=== PATIENT | female | born 1980 | race African-American/Black ===

== ENCOUNTER 2017-06-21 14:57 | Inpatient (IN) | payer OTHER ==
[~2017-06-21] VITALS: Ht 172.7 cm; Wt 101.6 kg
--- NOTE | ~2017-06-21 | H ---
[facility] [place] [address] HISTORY AND PHYSICAL Name: CLINT BURGESS Room #: 307-P ADM IN M.R.#: [id number] Admission: 06/21/17 Attend Phys: Favian Yarbrough MD Discharge: Date of : 78 Report #: [id number] THIS REPORT FOR: //name// CC: STEPHY physician/PCP Favian Yarbrough DICTATED BY: Marisa AHUJA DATE OF SERVICE: 06/21/2017 CHIEF COMPLAINT: MS flare. HISTORY OF PRESENT ILLNESS: The patient is a 37-year-old obese female with a history of diabetes as well as MS. She says she was diagnosed with MS about 3 years ago. She has been on high dose steroids for MS for the last 3 years. She actually says she has been on prednisone since the age of 14 for hives and she has never been off of it. She has been taking 100 mg of prednisone daily. As far as her MS, she has had increased symptoms over the last 6 months. She reports that she has locking in her legs and arms and slight pains. She has pressure behind her eyes and headache. She is very sensitive to light. She also describes 2 recent episodes of vision loss. One episode was 2 days ago and one episode was yesterday in which she had total blackness. She was talking to a friend and was suddenly unable to see her, but her friend said her eyes had remained open the whole time. She says this lasted about 10 minutes. She also says she had increasing weakness and numbness in both legs. This has progressively been getting worse. The weakness and numbness has been affecting both thighs. She is on chronic opiates as well benzos at home. She says the pain medicine including Dilaudid 4 mg p.o. has not been helping her pain in her legs. She has been able to ambulate. As far as her diabetes, she does check her blood sugars regularly, but says that her blood sugars have been running very high in the last few days. She has also noticed increasing urination and increasing thirst. She has been afraid to adjust her insulin too much because "I'm not a doctor." She recently moved here from [place] with her spouse for unclear reasons. She is yet to get established with a PCP, neurologist or electrical research engineer here. PAST MEDICAL HISTORY: MS, insulin-dependent diabetes, hypertension, pancreatitis, hyperlipidemia, depression. PAST SURGICAL HISTORY: Cholecystectomy, Donya-en-Y gastric bypass, Donya-en-Y reverse and stomach reconstruction, multiple ERCPs, lumbar back surgery, left hand repair, right ACL repair, and right buttock abscess I and D. ALLERGIES: VICODIN, ____, BACLOFEN, CONTRAST DYE, HYDROCODONE, IBUPROFEN, CYTOTEC, PERCOCET, LYRICA, COMPAZINE, TRAMADOL. [address] [address] HISTORY AND PHYSICAL Name: CLINT BURGESS Room #: 307-P ADM IN M.R.#: [id number] Admission: 06/21/17 Attend Phys: Favian Yarbrough MD Discharge: Date of : 78 Report #: [id number] HOME MEDICATIONS: Hydroxyzine 50 mg p.o. q.i.d., carvedilol 25 mg p.o. b.i.d., clonidine 0.2 mg p.o. b.i.d., NovoLog insulin 20 units with meals and sliding scale before meals and at bedtime, prednisone 100 mg daily, Norvasc 5 mg daily, Invokana 300 mg daily, temazepam 15 mg at bedtime, Lipitor 40 mg daily, Neurontin 600 mg t.i.d., lorazepam 2 mg at bedtime, Remeron 30 mg at bedtime, Prozac 40 mg daily, Protonix 40 mg daily, Zofran p.r.n., Singulair 10 mg at bedtime and ____ insulin 80 units at bedtime. SOCIAL HISTORY: The patient currently lives with her spouse. They recently moved here from [place] to be closer to a support system within her restorationism. She does have one child who does not live with her. She became very tearful when talking about her son. She is a smoker. She currently smokes 5 cigarettes per day. She has been smoking for 18 months. She denies any alcohol or drug use. She does require a cane or a walker at times for ambulation. FAMILY HISTORY: She does have an aunt who has MS. Her mother is alive with diabetes, prior stroke and heart attack. Her father is . She did not know him or why he . REVIEW OF SYSTEMS: The patient states she had complications after a Donya-en-Y surgery, in which she required long-term TPN for many years and was unable to eat. She then had stomach reconstruction surgery to reverse this. She is now able to eat and drink without difficulty. All other 12-point review of systems was reviewed with the patient, otherwise negative unless stated in the HPI. PHYSICAL EXAMINATION: GENERAL: The patient is an alert, well-manicured, obese female, in no acute distress. VITAL SIGNS: Temperature 36.9, heart rate initially was 126, respirations 16, blood pressure is 138/102, oxygen 100% on room air. HEENT: PERRLA. Sclerae is nonicteric. Oral mucosa is pink and moist. NECK: Supple, no JVD noted. CARDIAC: Normal S1, S2. No murmurs, rubs or gallops. RESPIRATORY: Breath sounds are clear bilaterally. She is diminished in both bases. Breathing is nonlabored. ABDOMEN: Soft and obese, nontender with positive bowel sounds. There are multiple abdominal surgery scars that are well healed. VASCULAR: No edema noted. Pedal pulses are 2+ and no calf tenderness. NEUROLOGIC: She does have slight weakness to left lower extremity, but she is able to raise her left leg up off the bed and bend her knee at a 90-degree angle. She does have slight decreased sensation in both lower extremities. Muscle strength is 5/5 in bilateral upper extremities. SKIN: Intact. No rashes or lesions. She does have multiple piercings of her nose, lip and ears. PSYCHIATRIC: The patient is calm and cooperative, but did become tearful when talking about her son. [address] [address] HISTORY AND PHYSICAL Name: CLINT BURGESS Room #: [address] [place] [address] IN .R.#: [id number] Admission: 06/21/17 Attend Phys: Favian Yarbrough MD Discharge: Date of : 78 Report #: [id number] LABORATORY DATA AND DIAGNOSTICS: Potassium 4.5, BUN 14, creatinine 1.6, glucose 557. Lipase is 119. Urine test was negative. VBGs showed a pH of 7.32, pCO2 of 38.7, and pO2 of 49.2 with a lactate of 4.64. WBC is 8.2, hemoglobin 9.7, and platelets 238. Urine shows 3+ blood, negative nitrite and leukocyte esterase. No wbc's. There was yeast present and 3+ glucose. CT of the abdomen and pelvis showed chronic changes in the lumbar spine. There is a tiny kidney stone without obstruction or ureter stone. There are old bowel surgical changes. There is a small umbilical hernia with small bowel extending into the hernia sac. There is minor pancreatic head calcification and possibly chronic pancreatitis. ASSESSMENT AND PLAN: 1. Possible multiple sclerosis flare. The most concerning is that she had some vision loss. She is already on high dose steroids at this time and we will need to further evaluate for stroke with an MRI. Consult neurology. She needs to establish care with neurology and possibly a multiple sclerosis specialist here in [place] to discuss other treatment options as her high dose steroids are making her blood sugars out of control. 2. Diabetes. This is uncontrolled. She is not in diabetic ketoacidosis. She was given an insulin bolus in the Emergency Room. Resume her home insulin including long-acting insulin and premeal insulin and sliding scale. Check hemoglobin A1c. 3. Systemic inflammatory response syndrome. It is not clear if this is related to infection or uncontrolled sugars. She is not in diabetic ketoacidosis and does not have ketones in her urine. She does have yeast in her urine. We will add fluconazole. Otherwise, no other source of infection was seen. Continue with IV fluids. Follow lactate level after IV fluids. 4. Acute kidney injury. Baseline creatinine is unknown. We will try to rehydrate and repeat labs. 5. Hypertension. Blood pressure is stable. Resume home meds and monitor blood pressure. 6. Chronic narcotics and benzo use. We will need to verify her medications with her pharmacy. Once they are verified, we will continue them, but hold for sedation. 7. Anemia. The patient says this is chronic. No signs of bleeding. 6. Deep venous thrombosis prophylaxis. Place sequential compression devices. We will continue to follow the patient closely throughout the hospitalization and make changes based on clinical status. <ELECTRONICALLY SIGNED> By: Nivia Rees MD 06/23/17 1514 [id number] Nivia Rees MD /sina
--- NOTE | ~2017-06-21 | HC ---
[facility] [place] [address] CONSULTATION Name: CLINT BURGESS Room #: 307-P ADM IN M.R.#: [id number] Admission: 06/21/17 Attend Phys: Favian Yarbrough MD Discharge: Date of : 78 Report #: [id number] THIS REPORT FOR: //name// CC: STEPHY physician/PCP Favian Yarbrough DATE OF SERVICE: 06/23/2017 HISTORY OF PRESENT ILLNESS: The patient is a 37-year-old -[place] female diagnosed with MS approximately 3 years ago, notes that she was in denial regarding it. She was being treated with corticosteroids. She was functioning quite well overall and then she started having worsening problems with ADLs and was using a cane versus walker. She was admitted with an episode of visual loss. MRI is positive for extensive demyelinating changes and she has been diagnosed with an MS exacerbation. Neurology is involved. She is on Solu-Medrol and she is being started on immunomodulators. With the chronic steroid use, endocrinology is felt recommended. We are seeing her in rehabilitation medicine consultation. PAST MEDICAL HISTORY: Also includes diabetes mellitus type 2, hypertension, chronic pancreatitis and exogenous obesity. SOCIAL HISTORY: She lives in an apartment alone. There are 4 steps in and then steps to go up to her washer and dryer or down to her bedroom. It is basically a split level. She is currently living by herself. Her 16-year-old son is with another family member out of town and she has a significant other that is currently in [place] where she is originally from. Premorbid cane versus walker ambulator. REVIEW OF SYSTEMS: Did not offer any current complaints of chest pain, shortness of breath or abdominal discomfort. PHYSICAL EXAMINATION: GENERAL: A 37-year-old overweight -[place] female in no obvious distress. She is alert and pleasant. VITAL SIGNS: Last recorded temperature 97.7, pulse 69, respirations 14 and blood pressure 157/110. NEUROLOGIC: Alert, oriented. HEENT: Appeared to be benign. EOMs, no nystagmus. Facies were symmetric. EXTREMITIES: Functional range of motion of both upper extremities. She has good strength. Coordination really appeared intact as far as donuai-jj-tang. In her lower extremities, there is no focal calf swelling. I would grade her strength at a 4/5. She is somewhat weak of the left leg, that is more of a 4-/5. Functionally, she is [id number] standby assistance and ambulated 150 feet contact guard [place] [address] CONSULTATION Name: CLINT BURGESS Room #: [address] [place] [address] IN M.R.#: [id number] Admission: 06/21/17 Attend Phys: Favian Yarbrough MD Discharge: Date of : 78 Report #: [id number] ASSESSMENT: A 37-year-old -[place] female with the following problem list: 1. Multiple sclerosis exacerbation. 2. Gait and mobility deficits, which are improving. 3. Diabetes mellitus. 4. Hypertension. 5. History of a pancreatitis. PLAN: The patient is doing quite well with basic functional mobility with sit to stand and ambulating 150 feet contact guard with a front-wheeled walker. We will have the therapist work with her on steps. OT to further evaluate. Would anticipate she will likely be able to return directly home as she further medically stabilizes, but we will continue to follow along with you in the meantime. By: 1105 [id number] Ramsey Leung MD /nt
[2017-06-21 14:59] VITALS: BP 138/102
[2017-06-21] MEDS ORDERED: COREG25 MG PO (16:38)
[2017-06-21] MEDS ORDERED: HYDROXYZINE HCL50 MG PO (16:38)
[2017-06-21] MEDS ORDERED: CATAPRES0.2 M1 PO (16:39)
[2017-06-21] MEDS ORDERED: NOVOLOG100 UNIT/1 SUBQ (16:39)
[2017-06-21] MEDS ORDERED: NORVASC5 MG PO (16:40)
[2017-06-21] MEDS ORDERED: INVOKANA300 MG PO (16:40)
[2017-06-21] MEDS ORDERED: PREDNISONE 20 M20 MG PO (16:40)
[2017-06-21] MEDS ORDERED: RESTORIL15 MG PO (16:40)
[2017-06-21] MEDS ORDERED: NEURONTIN 300300 M1 PO (16:41)
[2017-06-21] MEDS ORDERED: ATORVASTATIN CA40 MG PO (16:41)
[2017-06-21] MEDS ORDERED: LORAZEPAM 2MG TA2 M1 PO (16:42)
[2017-06-21] MEDS ORDERED: PROZAC40 MG PO (16:43)
[2017-06-21] MEDS ORDERED: REMERON 30 MG T30 M1 PO (16:43)
[2017-06-21] MEDS ORDERED: SINGULAIR 10 MG10 M1 PO (16:44)
[2017-06-21] MEDS ORDERED: PROTONIX40 M1 PO (16:44)
[2017-06-21] MEDS ORDERED: ONDANSETRON HCL4 M2 PO (16:44)
[2017-06-21] MEDS ORDERED: TOUJEO SOL300 UNIT/1 SQ (16:45)
[2017-06-21 17:06] LABS: URINE BILIRUBIN NEGATIVE (Negative); URINE BLOOD 3+ (Negative); URINE COLOR YELLOW; URINE GLUCOSE-RANDOM* 3+ (Negative); URINE KETONES NEGATIVE (Negative); URINE LEUKOCYTES-REFLEX NEGATIVE (Negative); URINE PROTEIN (DIPSTICK) NEGATIVE (Negative); URINE UROBILINOGEN 0.2 E.U./dl (0.2-1.0)
[2017-06-21 17:16] LABS: CASTS None Seen /LPF (None Seen); CRYSTALS None Seen /LPF (None Seen); SQUAMOUS 4-10 Moderate /LPF (0-3); URINE WBC-REFLEX 0-5 Rare /HPF (0-5); YEAST-REFLEX Present (None Seen)
[2017-06-21 17:27] LABS: HEMATOCRIT 31.8 % (37.0-47.0); HEMOGLOBIN 9.7 gm/dL (12.0-15.0); MCH 24.7 pg (26.0-34.0); MCHC 30.6 g/dL (28.0-37.0); MCV 80.5 fL (80.0-100.0); PLATELET COUNT 238 thou/uL (150-400); RBC 3.95 mil/uL (4.20-5.00); RDW 21.6 % (10.5-14.5); WBC 8.2 thou/uL (4.0-11.0)
[2017-06-21 17:29] LABS: MANUAL DIFF YES
[2017-06-21 17:46] LABS: CALCIUM 9.2 mg/dL (8.5-10.1); CREATININE 1.6 mg/dL (0.6-1.0); POTASSIUM 4.5 mmol/L (3.5-5.1)
[2017-06-21 18:02] LABS: ABSOLUTE NEUTROPHILS 7.8 thou/uL (1.4-8.2); ANISOCYTOSIS 2+; POIKILOCYTOSIS 1+; POLYCHROMASIA OCCASIONAL; TOTAL CELL COUNT 100
[2017-06-21 19:01] LABS: ABG SAMPLE TYPE VENOUS; BE(vivo) -5.7 mmol/L (-2 to +3); HCO3 19.8 mmol/L (22.0-26.0); O2(CT) 10.8 mL/dL (15.0-23.0); O2Hb VENOUS 75.3 (65.0-85.0); PCO2 VENOUS 38.7 mmHg (41.0-51.0); PO2 VENOUS 49.2 mmHg (35.0-45.0); STICK SITE LINE; sO2 VENOUS 82.2 % (65.0-85.0)
[2017-06-21 19:02] LABS: LACTATE 4.64 mmol/L (0.5-2.0)
[2017-06-21 20:54] VITALS: BP 171/100
[2017-06-22 00:17] VITALS: BP 172/111
[2017-06-22 03:55] VITALS: BP 122/82
[2017-06-22 06:28] LABS: CALCIUM 8.6 mg/dL (8.5-10.1); CREATININE 1.1 mg/dL (0.6-1.0); POTASSIUM 3.8 mmol/L (3.5-5.1)
[2017-06-22 08:00] VITALS: BP 142/86
[2017-06-22] MEDS ORDERED: ESKALITH300 MG PO (08:03)
[2017-06-22 10:32] LABS: ABG SAMPLE TYPE ARTERIAL; BE(vivo) -1.9 mmol/L (-2 to +3); HCO3 22.3 mmol/L (22.0-26.0); LACTATE 1.69 mmol/L (0.5-2.0); O2(CT) 13.3 mL/dL (15.0-23.0); O2Hb 94.8 % (92.0-98.0); PCO2 35.6 mmHg (35.0-45.0); PO2 94.3 mmHg (80.0-100.0); pH 7.415 (7.360-7.450); sO2 97.4 % (92.0-98.0); tCO2 23.4 mmol/L (24.0-30.0)
[2017-06-22 10:33] LABS: STICK SITE R.RADIAL
[2017-06-22 11:16] LABS: CALCIUM 8.9 mg/dL (8.5-10.1); CREATININE 1.1 mg/dL (0.6-1.0); POTASSIUM 3.6 mmol/L (3.5-5.1)
[2017-06-22 11:22] LABS: ALBUMIN 3.2 g/dL (3.4-5.0); TOTAL BILIRUBIN 0.7 mg/dL (<0.1-1.0); TOTAL PROTEIN 6.8 g/dL (6.4-8.2)
[2017-06-22 16:00] VITALS: BP 141/92
[2017-06-22 19:23] VITALS: BP 149/98
[2017-06-23 03:47] VITALS: BP 152/98
[2017-06-23 05:08] LABS: GLYCOHEMOGLOBIN (HGB A1C) 8.9 % (4.8-5.6)
[2017-06-23 07:25] VITALS: BP 157/110
[2017-06-23 08:46] LABS: HEMATOCRIT 29.2 % (37.0-47.0); MCHC 30.9 g/dL (28.0-37.0); MCV 80.8 fL (80.0-100.0); RBC 3.61 mil/uL (4.20-5.00); RDW 21.3 % (10.5-14.5); WBC 7.6 thou/uL (4.0-11.0)
[2017-06-23 09:00] LABS: CALCIUM 8.7 mg/dL (8.5-10.1); CREATININE 1.5 mg/dL (0.6-1.0)
[2017-06-23 09:07] LABS: POTASSIUM 5.2 mmol/L (3.5-5.1)
[2017-06-23 13:21] LABS: CHOLESTEROL 150 mg/dL (<200); HDL CHOLESTEROL 65 mg/dL (>40); LDL CHOLESTEROL 68 mg/dL (<100); TC:HDL 2.3 Ratio (Not establshd); TRIGLYCERIDE 88 mg/dL (<150); VLDL 18 mg/dL (<40)
[2017-06-23 13:48] LABS: TSH 0.059 uIU/mL (0.358-3.740)
[2017-06-23 19:40] VITALS: BP 134/83
[2017-06-23 20:07] LABS: FREE T4 0.9 ng/dL (0.82-1.77)
[2017-06-24 01:06] LABS: HEP B SURFACE Ab(ANTI-HBS Non Reactive (())
[2017-06-24 04:25] VITALS: BP 129/79
[2017-06-24 04:43] LABS: HEMATOCRIT 27.8 % (37.0-47.0); HEMOGLOBIN 8.6 gm/dL (12.0-15.0); MCH 24.6 pg (26.0-34.0); MCV 79.4 fL (80.0-100.0); RBC 3.5 mil/uL (4.20-5.00); RDW 21.4 % (10.5-14.5)
[2017-06-24 04:54] LABS: CALCIUM 8.8 mg/dL (8.5-10.1)
[2017-06-24 05:01] LABS: POTASSIUM 4.2 mmol/L (3.5-5.1)
[2017-06-24 05:08] LABS: GLYCOHEMOGLOBIN (HGB A1C) 9.2 % (4.8-5.6)
[2017-06-24 08:27] VITALS: BP 150/99
[2017-06-24 17:39] VITALS: BP 143/94
[2017-06-24 19:34] VITALS: BP 143/88
[2017-06-25 04:03] VITALS: BP 139/86
[2017-06-25 04:05] LABS: HEMATOCRIT 27.3 % (37.0-47.0); HEMOGLOBIN 8.4 gm/dL (12.0-15.0); MCH 24.8 pg (26.0-34.0); MCHC 30.9 g/dL (28.0-37.0); MCV 80.4 fL (80.0-100.0); RBC 3.4 mil/uL (4.20-5.00); RDW 21.6 % (10.5-14.5)
[2017-06-25 04:16] LABS: CALCIUM 8.6 mg/dL (8.5-10.1); CREATININE 1.2 mg/dL (0.6-1.0); POTASSIUM 4.4 mmol/L (3.5-5.1)
[2017-06-25 08:00] VITALS: BP 158/102
[2017-06-25] MEDS ORDERED: KEFLEX500 MG PO (12:05)
[2017-06-25] MEDS ORDERED: ROBAXIN 750 MG750 M1 PO (12:06)
[2017-06-25] MEDS ORDERED: MORPHINE SULFAT15 M3 PO (12:11)
[2017-06-25] MEDS ORDERED: PREDNISONE 10 M10 M1 PO (12:16)
[2017-06-25] MEDS ORDERED: HUMALOG100 UNIT/1 SUBQ (12:17)
[2017-06-26 04:09] LABS: ALPHA TOCOPHEROL 7.6 mg/L (5.3-16.8)
== END 2017-06-25 16:12 | DRG 59 ==
LOC: ER 14:57 → 3N 18:57 → EROBS 18:57 → 3N 21:18
PROVIDERS: Emergency Medicine; Internal Medicine; Nurse Practitioner Acute Care; Psychiatry & Neurology Neurology
DX: G35 Multiple sclerosis (principal); N17.9 Acute kidney failure, unspecified; R65.10 Systemic inflammatory response syndrome (SIRS) of non-infectious origin without acute organ dysfunction; E27.40 Unspecified adrenocortical insufficiency; E87.2 Acidosis; N39.0 Urinary tract infection, site not specified; E87.0 Hyperosmolality and hypernatremia; K86.1 Other chronic pancreatitis; E11.65 Type 2 diabetes mellitus with hyperglycemia; I10 Essential (primary) hypertension; F17.210 Nicotine dependence, cigarettes, uncomplicated; D64.9 Anemia, unspecified; F32.9 Major depressive disorder, single episode, unspecified; E66.01 Morbid (severe) obesity due to excess calories; Z68.34 Body mass index [BMI] 34.0-34.9, adult; Z88.1 Allergy status to other antibiotic agents; Z88.8 Allergy status to other drugs, medicaments and biological substances; Z91.041 Radiographic dye allergy status
CPT/HCPCS: 10094

== ENCOUNTER 2017-07-16 15:16 | Inpatient (IN) | payer OTHER ==
[~2017-07-16] VITALS: Ht 172.7 cm; Wt 99.8 kg
--- NOTE | ~2017-07-16 | EKG ---
[place] [address] [address] [address] ELECTROCARDIOGRAM REPORT Name: CLNIT BURGESS Room #: 423-1 ADM IN M.R.#: [id number] Admission: 07/16/17 Attend Phys: Nivia Rees Discharge: Date of : 78 Report #: [id number] THIS REPORT FOR: //name// [facility] ED Test Date: 2017-07-16 Test Time: 18:02:57 Pat Name: CLINT BURGESS Department: Room: [facility] Gender: F Gasket Former: [id number] : 1980 Requested By: Parvez Espinosa Order Number: [id number] MD: Brock Carter Measurements Intervals [place] Rate: 90 P: 38 FL: 143 QRS: 13 QRSD: 100 T: 150 QT: 387 QTc: 474 Interpretive Statements Sinus rhythm LVH with secondary repolarization abnormality No previous ECG available for comparison Electronically Signed On 07-17-2017 12:41:52 CDT by Brock Carter [email or web address] <ELECTRONICALLY SIGNED> By: Brock Carter MD 07/17/17 1241 1802 1802 Brock Carter MD /GIULIA
[2017-07-16 15:16] VITALS: BP 107/75
[~2017-07-16 15:16] MED LIST: ATORVASTATIN CA40 MG PO; CATAPRES0.2 M1 PO; COREG25 MG PO; ESKALITH300 MG PO; HUMALOG100 UNIT/1 SUBQ; HYDROXYZINE HCL50 MG PO; INVOKANA300 MG PO; KEFLEX500 MG PO; LORAZEPAM 2MG TA2 M1 PO; MORPHINE SULFAT15 M3 PO; NEURONTIN 300300 M1 PO; NORVASC5 MG PO; NOVOLOG100 UNIT/1 SUBQ; ONDANSETRON HCL4 M2 PO; PREDNISONE 10 M10 M1 PO; PREDNISONE 20 M20 MG PO; PROTONIX40 M1 PO; PROZAC40 MG PO; REMERON 30 MG T30 M1 PO; RESTORIL15 MG PO; ROBAXIN 750 MG750 M1 PO; SINGULAIR 10 MG10 M1 PO; TOUJEO SOL300 UNIT/1 SQ
[2017-07-16 17:18] LABS: HEMATOCRIT 32.4 % (37.0-47.0); HEMOGLOBIN 10.1 gm/dL (12.0-15.0); MCH 24.7 pg (26.0-34.0); MCHC 31.3 g/dL (28.0-37.0); MCV 79.1 fL (80.0-100.0); RBC 4.09 mil/uL (4.20-5.00); RDW 20.1 % (10.5-14.5); WBC 5.5 thou/uL (4.0-11.0)
[2017-07-16 17:20] LABS: ABG SAMPLE TYPE VENOUS; BE(vivo) 5.5 mmol/L (-2 to +3); HCO3 30.6 mmol/L (22.0-26.0); O2(CT) 12.7 mL/dL (15.0-23.0); O2Hb VENOUS 82.2 (65.0-85.0); PCO2 VENOUS 47.1 mmHg (41.0-51.0); PO2 VENOUS 51.7 mmHg (35.0-45.0); sO2 VENOUS 87.3 % (65.0-85.0); tCO2 32.1 mmol/L (24.0-30.0)
[2017-07-16 17:31] LABS: CALCIUM 9.9 mg/dL (8.5-10.1); CREATININE 1.5 mg/dL (0.6-1.0)
[2017-07-16 17:35] LABS: POTASSIUM 2.7 mmol/L (3.5-5.1)
[2017-07-16 18:00] LABS: URINE BILIRUBIN NEGATIVE (Negative); URINE BLOOD NEGATIVE (Negative); URINE COLOR YELLOW; URINE GLUCOSE-RANDOM* 3+ (Negative); URINE KETONES NEGATIVE (Negative); URINE LEUKOCYTES-REFLEX NEGATIVE (Negative); URINE PROTEIN (DIPSTICK) NEGATIVE (Negative); URINE SPECIFIC GRAVITY <= 1.005 (1.003-1.035); URINE UROBILINOGEN 0.2 E.U./dl (0.2-1.0)
[2017-07-16 18:27] VITALS: BP 107/75
[2017-07-16 20:04] VITALS: BP 112/72
[2017-07-17 01:33] LABS: ALBUMIN 3.5 g/dL (3.4-5.0); CALCIUM 9.7 mg/dL (8.5-10.1); CREATININE 1.1 mg/dL (0.6-1.0); PHOSPHORUS 2.5 mg/dL (2.5-4.9)
[2017-07-17 01:34] LABS: POTASSIUM 2.6 mmol/L (3.5-5.1)
[2017-07-17 03:45] VITALS: BP 93/65
[2017-07-17 08:00] VITALS: BP 95/61
[2017-07-17 17:12] VITALS: BP 108/77
[2017-07-17 19:30] VITALS: BP 125/83
[2017-07-18 03:27] VITALS: BP 105/69
[2017-07-18 06:20] LABS: ALBUMIN 2.9 g/dL (3.4-5.0); CALCIUM 8.4 mg/dL (8.5-10.1); PHOSPHORUS 1.4 mg/dL (2.5-4.9)
[2017-07-18 06:22] LABS: POTASSIUM 4.5 mmol/L (3.5-5.1)
[2017-07-18 07:59] VITALS: BP 133/82
[2017-07-18 15:30] VITALS: BP 122/84
[2017-07-18 19:47] VITALS: BP 132/83; BP 149/65
[2017-07-19 04:30] VITALS: BP 121/76
[2017-07-19 08:01] VITALS: BP 112/75
[2017-07-19] MEDS ORDERED: HUMALOG100 UNIT/1 SUBQ (09:05)
[2017-07-19] MEDS ORDERED: PREDNISONE 20 M20 M1 PO (09:05)
[2017-07-19] MEDS ORDERED: LANTUS SUBQ (09:06)
[2017-07-19] MEDS ORDERED: PROTONIX40 M1 PO (09:18)
[2017-07-19] MEDS ORDERED: ATORVASTATIN CA40 MG PO (09:18)
[2017-07-19] MEDS ORDERED: PROZAC40 MG PO (09:18)
[2017-07-19] MEDS ORDERED: RESTORIL15 MG PO (09:18)
[2017-07-19] MEDS ORDERED: SINGULAIR 10 MG10 M1 PO (09:18)
[2017-07-19] MEDS ORDERED: NEURONTIN 300300 M1 PO (09:18)
[2017-07-19] MEDS ORDERED: REMERON 30 MG T30 M1 PO (09:18)
[2017-07-19] MEDS ORDERED: INVOKANA300 MG PO (09:18)
[2017-07-19] MEDS ORDERED: ROBAXIN 750 MG750 M1 PO (09:18)
[2017-07-19] MEDS ORDERED: COREG25 MG PO (09:18)
[2017-07-19] MEDS ORDERED: LORAZEPAM 2MG TA2 M1 PO (09:18)
[2017-07-19] MEDS ORDERED: MORPHINE SULFAT15 M3 PO (09:18)
[2017-07-19] MEDS ORDERED: CATAPRES0.2 M1 PO (09:18)
[2017-07-19] MEDS ORDERED: ONDANSETRON HCL4 M2 PO (09:18)
[2017-07-19] MEDS ORDERED: ESKALITH300 MG PO (09:18)
[2017-07-19 09:55] VITALS: BP 112/75
== END 2017-07-19 15:13 | disposition home or self-care (01) | DRG 60 ==
LOC: ER 15:16 → 4E 17:48 → EROBS 17:48 → 4E 19:14
PROVIDERS: Emergency Medicine; Hospitalist
DX: G35 Multiple sclerosis (principal); I10 Essential (primary) hypertension; E11.65 Type 2 diabetes mellitus with hyperglycemia; E87.5 Hyperkalemia; F17.210 Nicotine dependence, cigarettes, uncomplicated; R20.9 Unspecified disturbances of skin sensation; E78.5 Hyperlipidemia, unspecified; E66.9 Obesity, unspecified; Z68.33 Body mass index [BMI] 33.0-33.9, adult; Z79.899 Other long term (current) drug therapy; Z79.4 Long term (current) use of insulin; Z88.6 Allergy status to analgesic agent; Z88.8 Allergy status to other drugs, medicaments and biological substances; Z91.041 Radiographic dye allergy status
CPT/HCPCS: 10183